=== PATIENT | male | born 1995 | race Caucasian/White ===

== ENCOUNTER 2017-01-19 08:49 | Emergency (ER) | payer SELFPAY ==
[2017-01-19] MEDS ORDERED: Lidocaine 1% 20 ML MDV INJECT ONE (09:12)
[2017-01-19] MEDS ORDERED: HYDROmorphone 1 MG/ML Syringe IM ONE (09:23)
[2017-01-19] MEDS ORDERED: Lidocaine 1% with EPINEPHrine 1:100,000 20 ML MDV INJECT ONE (09:24)
--- NOTE | 2017-01-19 10:54 | EDM.PDOC ---
[id number] 4d CUT ON GROIN AREA Time Seen by Provider: 01/19/17 09:00 Source of Information: Reports: Patient History Limitations: Reports: No Limitations - History of Present Illness INITIAL COMMENTS - FREE TEXT/NARRATIVE: HISTORY AND PHYSICAL: History of present illness: 21-year-old male with no significant past medical history now complaining of laceration in the right groin area. Patient works doing a strenuous job and just prior to arrival use of steel fell over and the corner scraped and cut his right inguinal region no pulsatile bleeding. Patient has normal strength sensation and use of his right lower extremity. Denies other injury no genital injury Review of systems: As per history of present illness and below otherwise all systems reviewed and negative. Past medical history: As per history of present illness and as reviewed below otherwise noncontributory. Surgical history: As per history of present illness and as reviewed below otherwise noncontributory. Social history: No reported history of drug or alcohol abuse. Family history: As per history of present illness and as reviewed below otherwise noncontributory. Physical exam: HEENT: Atraumatic, normocephalic, pupils reactive, negative for conjunctival pallor or scleral icterus, mucous membranes moist, throat clear, neck supple, nontender, trachea midline. Lungs: Clear to auscultation, breath sounds equal bilaterally, chest nontender. Heart: S1S2, regular, negative for clicks, rubs, or JVD. Abdomen: Soft, nondistended, nontender. Negative for masses or hepatosplenomegaly. Negative for costovertebral tenderness. Pelvis: Stable nontender. Genitourinary: Deferred. Right inguinal distribution with 8 cm laceration through the skin and subcutaneous tissues and fat. No evidence of arterial or venous bleeding. No visible foreign body. Normal distal pulses temperature and cap Refill Rectal: Deferred. Extremities: Atraumatic, negative for cords or calf pain. Neurovascular unremarkable. Neuro: Awake, alert, oriented. Cranial nerves II through XII unremarkable. Cerebellum unremarkable. Motor and sensory unremarkable throughout. Exam nonfocal. Diagnostics: [] Therapeutics: [Suture repair by JACOB Reese Patient lying in [facility]. Wound anesthetized with 1% lidocaine and high-pressure jet irrigation performed. 6 5-0 nylon Ethilon sutures placed interrupted. Placed by JACOB Reese with good approximation and hemostasis. Patient tolerated well no complications] Impression: [Laceration right groin] Plan: [Patient with 8 cm laceration right groin. No evidence of neurovascular bundle involvement in the right femoral distribution. Hemostatic on arrival no gross contamination. Area anesthetized with 1% [place] with epi. Irrigated extensively with high pressure jet irrigation by JACOB Reese Wound repair performed. Good approximation and hemostasis. Patient blood pressure for 5 minutes and then sterile dressing applied. He is aware to follow-up with PCP in 2 days for wound check and with surgery Dr. Wm Taylor in 1 week for reevaluation and to arrange suture removal] Definitive disposition and diagnosis as appropriate pending reevaluation and review of above. right inguinal Pain Score (Numeric/FACES): 8 - Related Data Allergies Allergy/AdvReac Type Severity Reaction Status Date / Time No Known Allergies Allergy Verified 01/19/17 09:04 Home Meds: Home Meds . [No Known Home Meds] 01/19/17 [History] Past Medical History - Past Health History Medical/Surgical History: Denies Medical/Surgical History Social & Family History - Family History Family Medical History: Noncontributory - Tobacco Use Smoking Status *Q: Current Every Day Smoker Years of Tobacco use: 1 Packs/Tins Daily: 1 - Caffeine Use Caffeine Use: Reports: None - Recreational Drug Use Recreational Drug Use: No ED ROS GENERAL - Review of Systems Review Of Systems: See Below (History of present illness) ED EXAM, SKIN/RASH Exam: See Below (History of present illness) Course - Vital Signs Last Recorded V/S: Last Vital Signs Temp 36.5 C 01/19/17 14:19 Pulse 63 01/19/17 14:19 Resp 18 01/19/17 14:19 BP 108/65 01/19/17 14:19 Pulse Ox 97 01/19/17 14:19 - Orders/Labs/Meds Orders: Active Orders 24 hr Category Date Time Status Vaccines to be Administered [RC] PER UNIT ROUTINE Care 01/19/17 13:54 Active Meds: Medications Discontinued Medications Generic Name Dose Route Start Last Admin Trade Name Freq PRN Reason Stop Dose Admin Diphtheria/Tetanus/Acell Pertussis 0.5 ml 01/19/17 13:53 01/19/17 14:00 Adacel IM 01/19/17 13:54 0.5 ml .ONCE ONE Administration Hydromorphone HCl 1 mg 01/19/17 09:23 01/19/17 10:00 Dilaudid IM 01/19/17 09:24 1 mg ONETIME ONE Administration Cefazolin Sodium/Dextrose 1 gm 50 mls @ 100 mls/hr 01/19/17 13:30 01/19/17 13 :47 / Premix IV 01/19/17 13:59 100 mls/hr ONETIME ONE Administration Lidocaine HCl 20 ml 01/19/17 09:12 01/19/17 10:00 Xylocaine 1% INJECT 01/19/17 09:13 Not Given ONETIME ONE Lidocaine/Epinephrine 20 ml 01/19/17 09:24 01/19/17 10:38 Xylocaine 1% With Epinephrine 1:100,000 INJECT 01/19/17 09:25 20 ml ONETIME ONE Administration Departure - Departure Time of Disposition: 14:15 Disposition: Home, Self-Care 01 Condition: Good Clinical Impression: Laceration - Discharge Information Instructions: Laceration Care, Adult, [id number] Referrals: PCP,None [Primary Care Provider] - Forms: ED Department Discharge Additional Instructions: Keep wound dry and clean. You have a follow up appointment on January 28 at 10:[address] Taylor in the [facility]. Please arrive 15 min early for apt. - My Orders Last 24 Hours: My Active Orders 01/19/17 13:54 Vaccines to be Administered [RC] PER UNIT ROUTINE - Assessment/Plan Last 24 Hours: My Active Orders 01/19/17 13:54 Vaccines to be Administered [RC] PER UNIT ROUTINE
[2017-01-19] MEDS ORDERED: ceFAZolin 1 GM in Premix Bag 1 BAG IV ONE (13:30)
[2017-01-19] MEDS ORDERED: Diphtheria,Pertussis(Acell),Tetanus Vaccine 0.5 ML Syringe IM ONE (13:53)
[2017-01-19 14:20] VITALS: BP 108/65
== END 2017-01-19 14:26 | disposition home or self-care (01) ==
LOC: MW.ED 08:49
DX: S31.113A Laceration without foreign body of abdominal wall, right lower quadrant without penetration into peritoneal cavity, initial encounter (principal); F17.210 Nicotine dependence, cigarettes, uncomplicated; Z23 Encounter for immunization; W20.8XXA Other cause of strike by thrown, projected or falling object, initial encounter; Y93.89 Activity, other specified; Y99.0 Civilian activity done for income or pay
CPT/HCPCS: 12004; 90471; 90715; 96365; 96372; 99283; J0690; J1170